=== PATIENT | male | born 1975 | race Asian ===

== ENCOUNTER 2017-06-14 00:47 | Emergency (ER) | payer OTHER ==
[~2017-06-14] VITALS: Ht 175.3 cm; Wt 103.0 kg
[2017-06-14] MEDS ORDERED: KETOROLAC 60MG/2ML VIAL IM ONE (04:15)
[2017-06-14] MEDS ORDERED: PENICILLIN V POTASSIUM 250MG TABLET PO SCH (04:15)
[2017-06-14 04:51] VITALS: BP 158/106
== END 2017-06-14 05:14 | disposition home or self-care (01) ==
LOC: ER 00:48
DX: K08.89 Other specified disorders of teeth and supporting structures (principal)
CPT/HCPCS: 96372; 99283; J1885; Z7610